=== PATIENT | female | born 1985 | race African-American/Black ===

== ENCOUNTER 2016-08-13 22:57 | Emergency (ER) | payer OTHER ==
[~2016-08-13] VITALS: Ht 154.9 cm; Wt 65.3 kg
[~2016-08-13 22:57] MED LIST: CLARITIN10 MG PO; NAPROSYN500 MG PO; NOHOMEMEDICATIONS; PREDNISONE 20 M20 MG PO; VANDAZOLE GEL 070 GM VG; VITAFOL-OB+DHA1 EACH PO
[2016-08-13 22:59] VITALS: BP 113/73
[2016-08-13] MEDS ORDERED: ZANTAC 150MG T150 MG PO (23:22)
[2016-08-13] MEDS ORDERED: ZYRTEC10 MG PO (23:22)
[2016-08-13] MEDS ORDERED: PREDNISONE 20 M20 MG PO (23:22)
== END 2016-08-13 23:32 | disposition home or self-care (01) ==
LOC: ER 22:57
DX: L50.9 Urticaria, unspecified (principal)

== ENCOUNTER 2018-05-01 17:05 | Emergency (ER) | payer OTHER ==
[~2018-05-01] VITALS: Ht 157.5 cm; Wt 72.6 kg
[~2018-05-01 17:05] MED LIST changes: +ZANTAC 150MG T150 MG PO; +ZYRTEC10 MG PO
[2018-05-01 17:10] VITALS: BP 115/80
[2018-05-01] MEDS ORDERED: BACTRIM DS TAB1 EACH PO (17:38)
[2018-05-01] MEDS ORDERED: IBUPROFEN 600600 M1 PO (17:38)
== END 2018-05-01 18:09 | disposition home or self-care (01) ==
LOC: ER 17:05
DX: L02.214 Cutaneous abscess of groin (principal)

== ENCOUNTER 2018-12-01 10:48 | Emergency (ER) | payer BC, OTHER ==
[~2018-12-01] VITALS: Ht 157.5 cm; Wt 77.1 kg
[~2018-12-01 10:48] MED LIST changes: +BACTRIM DS TAB1 EACH PO; +IBUPROFEN 600600 M1 PO
[2018-12-01 11:19] LABS: ABSOLUTE NEUTROPHILS 2.8 thou/uL (1.4-8.2); BASOPHILS 0.5 % (0.0-2.0); EOSINOPHILS 0.7 % (0.0-3.0); HEMOGLOBIN 12.4 gm/dL (12.0-15.0); LYMPHOCYTES 27.4 % (24.0-44.0); MCHC 33.7 g/dL (28.0-37.0); MCV 95.2 fL (80.0-100.0); MONOCYTES 7.8 % (1.0-8.0); PLATELET COUNT 195 thou/uL (150-400); POLYS 63.6 % (36.0-66.0); RBC 3.89 mil/uL (4.20-5.00); RDW 12.8 % (10.5-14.5); WBC 4.4 thou/uL (4.0-11.0)
[2018-12-01 11:28] LABS: CALCIUM 9.2 mg/dL (8.5-10.1); CREATININE 0.7 mg/dL (0.6-1.0); POTASSIUM 3.5 mmol/L (3.5-5.1)
[2018-12-01 11:47] LABS: URINE BILIRUBIN NEGATIVE (Negative); URINE BLOOD 3+ (Negative); URINE CLARITY CLOUDY; URINE COLOR RED; URINE GLUCOSE-RANDOM* NEGATIVE (Negative); URINE KETONES NEGATIVE (Negative); URINE LEUKOCYTES-REFLEX TRACE (Negative); URINE NITRITE-REFLEX NEGATIVE (Negative); URINE PROTEIN (DIPSTICK) 1+ (Negative)
[2018-12-01 12:18] LABS: BACTERIA-REFLEX 1-9 Few /HPF (None Seen); CASTS None Seen /LPF (None Seen); CRYSTALS None Seen /LPF (None Seen); SQUAMOUS 4-10 Moderate /LPF (0-3); URINE RBC >20 Many /HPF (0-2); URINE WBC-REFLEX 0-5 Rare /HPF (0-5)
[2018-12-01 12:30] VITALS: BP 123/73
== END 2018-12-01 12:30 | disposition home or self-care (01) ==
LOC: ER 10:48
PROVIDERS: Nurse Practitioner Family
DX: N93.8 Other specified abnormal uterine and vaginal bleeding (principal); Z88.8 Allergy status to other drugs, medicaments and biological substances

== ENCOUNTER 2020-02-14 02:49 | Emergency (ER) | payer BC ==
[~2020-02-14] VITALS: Ht 154.9 cm; Wt 82.6 kg
[2020-02-14] MEDS ORDERED: NOHOMEMEDICATIONS (02:55)
[2020-02-14 04:10] VITALS: BP 127/80
== END 2020-02-14 04:15 | disposition home or self-care (01) ==
LOC: ER 02:49
DX: M54.32 Sciatica, left side (principal); R20.2 Paresthesia of skin; Z79.899 Other long term (current) drug therapy; Z88.8 Allergy status to other drugs, medicaments and biological substances

== ENCOUNTER 2020-08-01 19:24 | Emergency (ER) | payer BC, OTHER ==
[~2020-08-01] VITALS: Ht 154.9 cm; Wt 83.9 kg
[2020-08-01 20:38] VITALS: BP 136/96
== END 2020-08-01 21:30 | disposition home or self-care (01) ==
LOC: ER 19:24
DX: N76.4 Abscess of vulva (principal); Z88.8 Allergy status to other drugs, medicaments and biological substances